=== PATIENT | male | born 1950 | race Caucasian/White ===

== ENCOUNTER 2018-09-20 07:42 | Inpatient (IN) | payer BC, OTHER ==
[2018-09-20] MEDS ORDERED: NA CHLORIDE 0.9% 1,000 ML ONE ×2 (08:29→10:38)
[2018-09-20 08:41] LABS: Absolute Lymphocytes (CBC) 0.9 K/uL (0.7-4.9); Basophils % 0.3 % (0-1.3); Eosinophils % 0.4 % (0-4.4); Hematocrit 44.7 % (39.6-49.0); Lymphocytes % 7.9 % (15.3-44.8); MPV 7.7 fL (7.6-11.3); Monocytes % 10.6 % (3.3-12.3); RBC Red Blood Cell Count 4.66 M/uL (4.33-5.43)
[2018-09-20 09:06] LABS: Albumin 3.2 g/dL (3.4-5.0); Bilirubin Direct 0.7 mg/dL (0-0.2); Bilirubin Total 1.5 mg/dL (0.2-1.0); Potassium 3.9 mmol/L (3.5-5.1)
--- NOTE | 2018-09-20 09:46 | RAD REPORT ---
EXAM DESCRIPTION: CT - Abdomen Pelvis W Contrast - 09/20/2018 9:25 am CLINICAL HISTORY: Abdominal pain with nausea. COMPARISON: none. TECHNIQUE: Computed axial tomography of the abdomen pelvis was obtained. 100 cc Isovue-300 was admin istered intravenously. Oral contrast was not requested which limits evaluation of bowel. All CT scans are performed using dose optimization technique as appropriate and may include automated exposure control or mA/KV adjustment according to patient size. FINDINGS: Mild fatty liver The Spleen, pancreas, and adrenals appear unremarkable. Bilateral renal calculi without hydronephrosi s. The prostate gland is mildly to moderately enlarged Diverticula stem from the colon without evidence of diverticulitis. Normal appendix. An umbilical hernia contains small bowel. The neck measures 3 centimeters. Mildly to moderately dilat ed small bowel is present to the level of the hernia. Ascites is present within the herniated sac. . Trace amount of ascites is present within the pelvis. Gallstones without gallbladder wall thickening IMPRESSION: Umbilical hernia contains obstructed small bowel
[2018-09-20] MEDS ORDERED: CIPROFLOXACIN 400mg IV 400 MG/200 ML BAG IV ONE (10:38)
[2018-09-20] MEDS ORDERED: METRONIDAZOLE 500mg IVPB 500 MG/100 ML BAG IV ONE (10:38)
[2018-09-20 11:02] LABS: Urine Blood NEGATIVE (NEG); Urine Glucose NEGATIVE (NEG); Urine Protein 2+ (NEG); Urine pH 6.5 (5.0-7.0)
--- NOTE | 2018-09-20 11:20 | ER ---
Nurse's Notes [facility] Name: Ariel Aburto Age: 67 yrs Sex: Male : 1950 Arrival Date: 09/20/2018 Time: 07:43 Bed 13 Private MD: Diagnosis: Umbilical hernia with obstruction, without gangrene Presentation: 09/20 07:44 Presenting complaint: Patient states: Has abdominal pain for awhile now but it is rb1 currently getting worse, pain 7/10. Transition of care: patient was not received from another setting of care. Onset of symptoms is unknown. Risk Assessment: Do you want to hurt yourself or someone else? Patient reports no desire to harm self or others. Initial Sepsis Screen: Does the patient meet any 2 criteria? No. Patient's initial sepsis screen is negative. Does the patient have a suspected source of infection? No. Patient's initial sepsis screen is negative. Care prior to arrival: None. 07:44 Method Of Arrival: Ambulatory [facility] 07:44 Acuity: HOANG 3 rb1 Triage Assessment: 07:44 General: Appears in no apparent distress. comfortable, Behavior is calm, cooperative, rb1 Reports fever for did not measure his temperature at home. Pain: Complains of pain in abdomen Pain currently is 7 out of 10 on a pain scale. Neuro: Level of Consciousness is awake, alert, obeys commands, Oriented to person, place, time, situation. Cardiovascular: Capillary refill < 3 seconds is brisk in bilateral fingers. Respiratory: Airway is patent Respiratory effort is even, unlabored, Respiratory pattern is regular, symmetrical. GI: Reports diarrhea, earlier in the week. : No signs and/or symptoms were reported regarding the genitourinary system. Derm: Skin is pink, warm \T\ dry. Musculoskeletal: Range of motion: intact in all extremities. Historical: - Allergies: 07:44 No Known Allergies; rb1 - Home Meds: 07:44 None [Active]; rb1 - PMHx: 07:44 None; rb1 - PSHx: 07:44 None; rb1 - Immunization history:: Adult Immunizations up to date. - Social history:: Smoking status: Patient uses tobacco products, smokes one pack cigarettes per day. - Ebola Screening: : Patient negative for fever greater than or equal to 101.5 degrees Fahrenheit, and additional compatible Ebola Virus Disease symptoms. Screenin:44 Abuse screen: Denies threats or abuse. Nutritional screening: No deficits noted. rb1 Tuberculosis screening: No symptoms or risk factors identified. Fall Risk None identified. Assessment: 07:44 General: See triage assessment. rb1 07:44 GI: Abdomen is tender to palpation in umbilical area. rb1 08:44 Reassessment: Patient appears in no apparent distress at this time. No changes from rb1 previously documented assessment. 09:44 Reassessment: Patient appears in no apparent distress at this time. Patient and/or rb1 family updated on plan of care and expected duration. Pain level reassessed. Patient is alert, oriented x 3, equal unlabored respirations, skin warm/dry/pink. 10:40 Reassessment: Patient appears in no apparent distress at this time. No changes from rb1 previously documented assessment. Pt. requested pain medication, provider notified. Provider denied pain medications at this time due to waiting for Dr. Bejarano to see the pt. 11:06 Reassessment: Dr. Bejarano is at the pt. bedside. rb1 11:40 Reassessment: Patient appears in no apparent distress at this time. Patient and/or rb1 family updated on plan of care and expected duration. Pain level reassessed. Patient is alert, oriented x 3, equal unlabored respirations, skin warm/dry/pink. 12:38 Reassessment: No changes from previously documented assessment. Patient and/or family rb1 updated on plan of care and expected duration. Pain level reassessed. Patient is alert, oriented x 3, equal unlabored respirations, skin warm/dry/pink. Pain 3/10. 12:45 Reassessment: Tried to call report but OCTAVIO Oakes was at lunch and will call me back. rb1 13:05 Reassessment: Called report to OCTAVIO Oakes. Information from the [facility] was given. All rb1 questions asked and answered. Vital Signs: 07:44 BP 113 / 94; Pulse 111; Resp 19; Temp 97.7(O); Pulse Ox 100% on R/A; Weight 92.99 kg rb1 (R); Height 5 ft. 11 in. (180.34 cm) (R); Pain 7/10; 08:44 BP 131 / 87; Pulse 93; Resp 17; Temp 97.9; Pulse Ox 98% on R/A; Pain 6/10; rb1 09:44 BP 122 / 83; Pulse 88; Resp 19; Temp 98.1(O); Pulse Ox 98% ; Pain 6/10; rb1 10:40 BP 126 / 83; Pulse 77; Resp 18; Temp 98.5(O); Pulse Ox 99% on R/A; Pain 6/10; rb1 11:40 BP 121 / 81; Pulse 77; Resp 17; Pulse Ox 97% on R/A; Pain 5/10; rb1 12:40 BP 126 / 75; Pulse 74; Resp 17; Temp 98.2(O); Pulse Ox 97% on R/A; Pain 3/10; rb1 07:44 Body Mass Index 28.59 (92.99 kg, 180.34 cm) rb1 ED Course: 07:43 Patient arrived in ED. as 07:44 Henny Kraft, RN is Primary Nurse. rb1 07:44 Arm band placed on right wrist. rb1 07:44 Patient has correct armband on for positive identification. Placed in gown. Bed in low rb1 position. Call light in reach. Side rails up X 1. Pulse ox on. NIBP on. 07:45 Toby Munoz PA is PHCP. cp 07:45 Toby Najera MD is Attending Physician. cp 07:55 Triage completed. rb1 08:21 Initial lab(s) drawn, by nj, sent to lab. Inserted saline lock: 18 gauge in right dh3 antecubital area, using aseptic technique. Blood collected. 08:40 Urine collected: clean catch specimen, clear. dh3 11:08 Abdomen In Process Unspecified. EDMS 11:18 Juan Diego Bejarano MD is Hospitalizing Provider. cp 12:03 EKG done, by treatment technician. reviewed by Toby BEJARANO. dt2 13:31 No provider procedures requiring assistance completed. Patient admitted, IV remains in rb1 place. Administered Medications: 08:31 Drug: NS 0.9% 1000 ml Route: IV; Rate: 500 ml/hr; Site: right antecubital; rb1 11:20 Follow up: IV Status: Completed infusion rb1 10:40 Drug: metroNIDAZOLE 500 mg Volume: 100 ml; Route: IVPB; Infused Over: 30 mins; Site: rb1 right antecubital; 11:15 Follow up: Response: No adverse reaction; IV Status: Completed infusion rb1 11:22 Drug: NS 0.9% 1000 ml Route: IV; Rate: 100 ml/hr; Site: right antecubital; rb1 13:30 Follow up: IV Status: Infusion continued upon admission rb1 11:23 Drug: Ciprofloxacin 400 mg Volume: 200 ml; Route: IVPB; Infused Over: 60 mins; Site: rb1 right antecubital; 12:41 Follow up: Response: No adverse reaction; IV Status: Completed infusion rb1 Output: 10:35 Urine: 1ml (Voided); Total: 1ml. rb1 Outcome: 11:19 Decision to Hospitalize by Provider. cp 13:31 Patient left the ED. rb1 13:31 Admitted to Tele accompanied by tech, via wheelchair, room 411, with chart, Report rb1 called to OCTAVIO Oakes 13:31 Condition: stable 13:31 Instructed on the need for admit. Signatures: Dispatcher [employer] Kym Cool Corey, Henny Spencer cp RN RN rb1 Netta Porter 3 Kerri Valencia dt2
--- NOTE | 2018-09-20 11:20 | EDPHYS ---
Physician Documentation [facility] Name: Ariel Aburto Age: 67 yrs Sex: Male : 1950 Arrival Date: 09/20/2018 Time: 07:43 Bed 13 Private MD: ED Physician Toby Najera HPI: 09/20 08:05 This 67 yrs old Male presents to ER via Ambulatory with complaints of cp Abdominal Pain. 08:05 The patient presents with abdominal pain that is diffuse. cp 08:05 Onset: The symptoms/episode began/occurred 1 year(s) ago, and became worse 2 week(s) cp ago. The symptoms do not radiate. Associated signs and symptoms: Pertinent negatives: anorexia, blood in stools, chest pain, constipation, diarrhea, fever, testicular pain, vomiting. The symptoms are described as waxing/waning. Severity of pain: in the emergency department the pain is a 7 / 10. Historical: - Allergies: 07:44 No Known Allergies; rb1 - Home Meds: 07:44 None [Active]; rb1 - PMHx: 07:44 None; rb1 - PSHx: 07:44 None; rb1 - Immunization history:: Adult Immunizations up to date. - Social history:: Smoking status: Patient uses tobacco products, smokes one pack cigarettes per day. - Ebola Screening: : Patient negative for fever greater than or equal to 101.5 degrees Fahrenheit, and additional compatible Ebola Virus Disease symptoms. ROS: 08:10 Constitutional: Negative for body aches, chills, fever, poor PO intake. cp 08:10 Eyes: Negative for injury, pain, redness, and discharge. cp 08:10 ENT: Negative for drainage from ear(s), ear pain, sore throat, difficulty swallowing, difficulty handling secretions. 08:10 Cardiovascular: Negative for chest pain, palpitations. 08:10 Respiratory: Negative for cough, shortness of breath, wheezing. 08:10 Abdomen/GI: Positive for abdominal pain, Negative for vomiting, diarrhea, constipation, anorexia, black/tarry stool, rectal bleeding. 08:10 Back: Negative for pain at rest, pain with movement, radiated pain. 08:10 : Negative for urinary symptoms, testicular pain 08:10 Skin: Negative for rash. 08:10 Neuro: Negative for altered mental status, headache, weakness. 08:10 All other systems are negative. Exam: 08:15 Constitutional: The patient appears in no acute distress, alert, awake, cp non-diaphoretic, non-toxic, well developed, well nourished. 08:15 Head/Face: Normocephalic, atraumatic. cp 08:15 Eyes: Periorbital structures: appear normal, Conjunctiva: normal, no exudate, no injection, Sclera: no appreciated abnormality, Lids and lashes: appear normal, bilaterally. 08:15 ENT: External ear(s): are unremarkable, Nose: is normal, Mouth: Lips: moist, Oral mucosa: pink and intact, moist, Posterior pharynx: is normal, airway is patent, no erythema, no exudate. 08:15 Chest/axilla: Inspection: normal, Palpation: is normal, no crepitus, no tenderness. 08:15 Cardiovascular: Rate: tachycardic, Rhythm: regular, Heart sounds: murmur, not appreciated, Edema: is not appreciated, JVD: is not appreciated. 08:15 Respiratory: the patient does not display signs of respiratory distress, Respirations: normal, no use of accessory muscles, no retractions, no splinting, no tachypnea, labored breathing, is not present, Breath sounds: are clear throughout, no decreased breath sounds, no stridor, no wheezing. 08:15 Abdomen/GI: Inspection: distension, that is mild, Bowel sounds: active, all quadrants, Palpation: soft, in all quadrants, mild abdominal tenderness, in all quadrants, rebound tenderness, is not appreciated, voluntary guarding, is not appreciated, involuntary guarding, is not appreciated, Hernia: noted in the umbilical area, incarceration, is not appreciated, tenderness, that is mild, reducible. 08:15 Back: pain, is absent, ROM is normal. 08:15 Skin: no rash present. 08:15 Neuro: Orientation: to person, place \T\ time. Mentation: is normal, Motor: moves all fours, strength is normal. 11:35 ECG was reviewed by the Attending Physician. cp Vital Signs: 07:44 BP 113 / 94; Pulse 111; Resp 19; Temp 97.7(O); Pulse Ox 100% on R/A; Weight 92.99 kg rb1 (R); Height 5 ft. 11 in. (180.34 cm) (R); Pain 7/10; 08:44 BP 131 / 87; Pulse 93; Resp 17; Temp 97.9; Pulse Ox 98% on R/A; Pain 6/10; rb1 09:44 BP 122 / 83; Pulse 88; Resp 19; Temp 98.1(O); Pulse Ox 98% ; Pain 6/10; rb1 10:40 BP 126 / 83; Pulse 77; Resp 18; Temp 98.5(O); Pulse Ox 99% on R/A; Pain 6/10; rb1 11:40 BP 121 / 81; Pulse 77; Resp 17; Pulse Ox 97% on R/A; Pain 5/10; rb1 12:40 BP 126 / 75; Pulse 74; Resp 17; Temp 98.2(O); Pulse Ox 97% on R/A; Pain 3/10; rb1 07:44 Body Mass Index 28.59 (92.99 kg, 180.34 cm) rb1 MDM: 07:46 Patient medically screened. [email or web address] 08:40 Differential diagnosis: appendicitis, bowel obstruction, cholecystitis, Cholelithiasis, cp diverticulitis, gastritis, pancreatitis, Peptic Ulcer Disease, Perf. Duodenal Ulcer, Perf. Gastric Ulcer, Ureterolithiasis, urinary tract infection, incarcerated hernia. 10:00 Data reviewed: vital signs, nurses notes, lab test result(s), radiologic studies, CT cp scan, I have discussed the patient's presentation/case with the attending Emergency Department Physician;. 10:03 Physician consultation: Juan Diego Bejarano MD was called at 10:00, was contacted at 10:00, regarding patient's condition, and will see patient in ED. 09/20 08:03 Order name: Basic Metabolic Panel cp 09/20 08:03 Order name: CBC with Diff cp 09/20 08:03 Order name: Creatinine for Radiology cp 09/20 08:03 Order name: Hepatic Function cp 09/20 08:03 Order name: Lipase cp 09/20 08:41 Order name: Urine Dipstick--Ancillary (enter results) ms 09/20 10:38 Order name: Basic Metabolic Panel EDMS 09/20 10:38 Order name: CBC with Automated Diff EDMS 09/20 10:39 Order name: Liver (Hepatic) Function EDMS 09/20 10:39 Order name: Lipase EDMS 09/20 10:40 Order name: Creatinine (Radiology Only) EDMS 09/20 11:14 Order name: Urine Dipstick-Ancillary EDMS 09/20 11:17 Order name: Troponin I cp 09/20 11:17 Order name: PT-INR cp 09/20 08:03 Order name: IV Saline Lock; Complete Time: 08:26 cp 09/20 08:03 Order name: Labs collected and sent; Complete Time: 08:26 cp 09/20 08:03 Order name: CT Abd/Pelvis - IV Contrast Only cp 09/20 08:03 Order name: Urine Dipstick-Ancillary (obtain specimen); Complete Time: 08:40 cp 09/20 10:57 Order name: Abdomen EDMS 09/20 11:17 Order name: EKG; Complete Time: 11:23 cp 09/20 11:17 Order name: Ptt, Activated cp 09/20 11:48 Order name: NPO EDIL 09/20 11:53 Order name: Basic Metabolic Panel EDIL 09/20 11:53 Order name: Basic Metabolic Panel EDIL 09/20 11:53 Order name: CBC with Automated Diff EDMS 09/20 11:53 Order name: CBC with Automated Diff EDMS 09/20 10:03 Order name: NPO; Complete Time: 10:19 cp 09/20 11:17 Order name: EKG - Nurse/Tech; Complete Time: 12:56 cp EC:35 Rate is 77 beats/min. Rhythm is regular. DC interval is normal. QRS interval is normal. cp QT interval is normal. Interpreted by me. Reviewed by me. Administered Medications: 08:31 Drug: NS 0.9% 1000 ml Route: IV; Rate: 500 ml/hr; Site: right antecubital; rb1 11:20 Follow up: IV Status: Completed infusion rb1 10:40 Drug: metroNIDAZOLE 500 mg Volume: 100 ml; Route: IVPB; Infused Over: 30 mins; Site: rb1 right antecubital; 11:15 Follow up: Response: No adverse reaction; IV Status: Completed infusion rb1 11:22 Drug: NS 0.9% 1000 ml Route: IV; Rate: 100 ml/hr; Site: right antecubital; rb1 13:30 Follow up: IV Status: Infusion continued upon admission rb1 11:23 Drug: Ciprofloxacin 400 mg Volume: 200 ml; Route: IVPB; Infused Over: 60 mins; Site: rb1 right antecubital; 12:41 Follow up: Response: No adverse reaction; IV Status: Completed infusion rb1 Disposition: 09/20/18 11:19 Hospitalization ordered by Juan Diego Bejarano for Inpatient Admission. Preliminary diagnosis is Umbilical hernia with obstruction, without gangrene. - Bed requested for Telemetry/MedSurg (Inpatient). - Status is Inpatient Admission. rb1 - Condition is Stable. - Problem is new. - Symptoms have improved. UTI on Admission? No Addendum: 09/21/2018 16:34 Co-signature as Attending Physician, Toby Najera MD I agree with the assessment and c dowd plan of care. Signatures: Dispatcher [employer] EDMS Toby Najera MD MD cha Solis, Maria ms Page, Corey, PA PA cp Barber, Rebecca, RN RN rb1 Corrections: (The following items were deleted from the chart) 09/20 11:19 11:19 Hospitalization Ordered by Juan Diego Bejarano MD for Inpatient Admission. Preliminary cp diagnosis is Umbilical hernia without obstruction or gangrene. Bed requested for Telemetry/MedSurg (Inpatient). Status is Inpatient Admission. Condition is Stable. Problem is new. Symptoms have improved. UTI on Admission? No. cp 12:37 11:19 09/20/2018 11:19 Hospitalization Ordered by Juan Diego Bejarano MD for Inpatient ms Admission. Preliminary diagnosis is Umbilical hernia with obstruction, without gangrene. Bed requested for Telemetry/MedSurg (Inpatient). Status is Inpatient Admission. Condition is Stable. Problem is new. Symptoms have improved. UTI on Admission? No. cp 13:31 12:37 09/20/2018 11:19 Hospitalization Ordered by Juan Diego Bjearano MD for Inpatient rb1 Admission. Preliminary diagnosis is Umbilical hernia with obstruction, without gangrene. Bed requested for Telemetry/MedSurg (Inpatient). Status is Inpatient Admission. Condition is Stable. Problem is new. Symptoms have improved. UTI on Admission? No. ms
[2018-09-20] MEDS ORDERED: ONDANSETRON 4 MG/2 ML VIAL IV PRN ×2 (11:25→11:29)
[2018-09-20] MEDS ORDERED: MORPHINE 2 MG/ML SYR IV PRN (11:29)
[2018-09-20] MEDS ORDERED: INSULIN -REGULAR HUMAN 50 UNIT/0.5 ML ML SQ SCH (11:30)
[2018-09-20] MEDS ORDERED: METRONIDAZOLE 500mg IVPB 500 MG/100 ML BAG IV SCH (12:00)
[2018-09-20] MEDS ORDERED: NA CHLORIDE 0.9% 1,000 ML IV SCH (12:00)
[2018-09-20 12:12] LABS: Protime INR 1.19
--- NOTE | 2018-09-20 12:29 | EKG ---
Test Date: 2018-09-20 Test Time: 11:31:04 Professor Of Music: TAMIKO MEASUREMENT RESULTS: Intervals: Rate: 77 IN: 160 QRSD: 86 QT: 390 QTc: 441 [place]: P: 74 IN: 160 QRS: 48 T: 55 INTERPRETIVE STATEMENTS: Normal sinus rhythm Normal ECG Compared to ECG 10/23/2003 18:28:00 Sinus tachycardia no longer present T-wave abnormality no longer present Electronically Signed On 09-20-18 12:28:20 CDT by Raheem Mallory
[2018-09-20] MEDS ORDERED: KCL 20 MEQ/100 mL IVPB 20 MEQ/100 ML BAG IV SCH (14:00)
[2018-09-20] MEDS: Ringers Lactate 1,000 ML IV SCH ×2 (14:14→22:00)
[2018-09-20] MEDS ORDERED: D50W 25 GM/50 ML SYRINGE IV PRN (17:11)
[2018-09-20] MEDS ORDERED: GLUCAGON 1 MG/VIAL IM PRN (17:11)
[2018-09-20] MEDS: METRONIDAZOLE 500mg IVPB 500 MG/100 ML BAG IV SCH ×2 (17:17→23:48)
[2018-09-20] MEDS: NICOTINE 21 MG/PAT TD SCH (17:18)
[2018-09-20] MEDS: INSULIN -REGULAR HUMAN 50 UNIT/0.5 ML ML SQ SCH (17:29)
[2018-09-20] MEDS: MORPHINE 2 MG/ML SYR IV PRN (17:33)
[2018-09-20] MEDS: CIPROFLOXACIN 400mg IV 400 MG/200 ML BAG IV SCH (20:52)
[2018-09-20] MEDS ORDERED: CIPROFLOXACIN 400mg IV 400 MG/200 ML BAG IV SCH (21:00)
--- NOTE | 2018-09-20 23:08 | HP ---
Date of Admission: 09/20/2018 Brief History Of Present Illness: The patient is a 67-year-old male with no past medical h istory; however, he has not seen a doctor and he states approximately 25 years ago, he was presented to the hospital with a 1-year history of abdominal pain and umbilical pain, swelling, and tenderness. He states that he has had an umbilical hernia for approximately a year. However, it coursed last m onth. It has progressively worsened over the last day or so. It popped into his umbilicus and got s ignificantly larger, more tender and he started to have some nausea associated. He has had similar e pisodes before in the past, but never of this intensity. Dr. Najera was able to successfully reduc e his hernia in the emergency room after CT was performed and the patient had significant pain and sy mptomatic improvement after reduction, but continued to have some mild tenderness to his abdomen foll owing that. Past Medical History: Negative. Past Surgical History: Negative. Allergies: NO KNOWN DRUG ALLERGIES. Medications: He takes NyQuil at night for sleep aid. He has a 57-[id number]-year history of smoking and smokes a pack per day. Denies alcohol or recreational drug use. 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 Family History: Noncontributory. Review of Systems: A 10-point review of systems other than HPI, denies. Physical Examination: General: At the time of my examination, he is awake, alert, and oriented. Psychiatric: Appropriate, conversive. HEENT: Normocephalic. Sclerae anicteric. Mucous membranes are moist. Oropharynx clear. Neck: Supple. No JVD. Chest: Normal expansion and excursion. Cardiovascular: Regular rate and rhythm. Pulmonary: Clear to auscultation bilaterally. Abdomen: Soft with positive reducible umbilical hernia. I have palpated the hernia. There was cont ent, but easily reducible with minimal tenderness, but recurs somewhat quickly. The defect is approx imately a centimeter in size at the umbilical position. The remainder of his abdominal exam is compl etely benign. Extremities: No clubbing, cyanosis, or edema. Skin: Warm, dry. Laboratory Data: Reveals white blood count 11.5, hemoglobin is 15.2, hematocrit 44.7, platelet count is 258. His neutrophils 80%. His sodium 139, potassium 3.9, chloride 104, carbon dioxide 27, BUN 2 4, creatinine 0.9, glucose is 109. His total bilirubin 1.5, direct component 0.7, AST 21, ALT 29, al kaline phosphatase 103, lipase 97. He had a CT scan performed of the abdomen and pelvis, which was o fficially read as umbilical hernia contains small bowel and neck measures 3 cm. Mild to moderately d ilated small bowel is present at the level of the hernia. Ascites is present without the hernia sac. Trace amount of ascites is present in the pelvis. Assessment And Plan: This is a 67-year-old male who presents with a reducible umbilical hernia. 1.IV fluid hydration. 2.Antibiotic coverage. 3.I have explained the risks, benefits, and alternatives of open umbilical hernia repair. We will p roceed with surgery tomorrow morning as this is a reducible hernia and his pain is improving, but it recurs somewhat quickly. In addition, he had some coffee not too long ago and Anesthesia prefers 6-8 hours of n.p.o. prior to any surgical intervention that is not emergent and therefore I will plan fo r surgery tomorrow morning. The patient will be admitted under my service. I have explained the ris ks, benefits, and alternatives of the above-stated plan. The patient agrees to proceed as indicated. DERICK/QUINN Voice ID: [id number]
[2018-09-21] MEDS: INSULIN -REGULAR HUMAN 50 UNIT/0.5 ML ML SQ SCH ×4 (06:00→18:00)
[2018-09-21] MEDS: METRONIDAZOLE 500mg IVPB 500 MG/100 ML BAG IV SCH (06:26)
[2018-09-21 06:28] LABS: Absolute Lymphocytes (CBC) 1.1 K/uL (0.7-4.9); Basophils % 0.3 % (0-1.3); Eosinophils % 1.6 % (0-4.4); Lymphocytes % 22.3 % (15.3-44.8); Monocytes % 7.8 % (3.3-12.3); RBC Red Blood Cell Count 4.35 M/uL (4.33-5.43)
[2018-09-21 06:45] LABS: Potassium 3.8 mmol/L (3.5-5.1)
[2018-09-21] MEDS: Ringers Lactate 1,000 ML IV SCH ×2 (08:00→18:00)
[2018-09-21 08:14] LABS: Blood Morphology Comment NOT SEEN (NOT SEEN); Platelet Estimate ADEQ; Urine White Blood Cell Casts OK
[2018-09-21] MEDS: CIPROFLOXACIN 400mg IV 400 MG/200 ML BAG IV SCH (08:37)
[2018-09-21] MEDS ORDERED: PROPOFOL 200 MG/20 ML VIAL IV ONE (09:23)
[2018-09-21] MEDS ORDERED: GLYCOPYRROLATE 0.2 MG/ML SYR ONE (09:24)
[2018-09-21] MEDS ORDERED: MIDAZOLAM HCL 2 MG/2 ML INJ ONE (09:24)
[2018-09-21] MEDS ORDERED: LIDOCAINE 2% MPF 5 ML VIAL ONE (09:25)
[2018-09-21] MEDS ORDERED: FENTANYL CITR 250 MCG/5 ML ONE (09:25)
[2018-09-21] MEDS ORDERED: NEOSTIGMINE 1 MG/ML -10 ML VIAL ONE (09:26)
[2018-09-21] MEDS ORDERED: ONDANSETRON 4 MG/2 ML VIAL ONE (09:28)
[2018-09-21] MEDS ORDERED: ROCURONIUM 50 MG/5 ML VIAL IV ONE (09:28)
[2018-09-21] MEDS ORDERED: BUPIVACA 0.25%/EPI 0.0005% MDV 50 ML VIAL ONE (09:29)
--- NOTE | 2018-09-21 10:38 | P.OP ---
Preoperative diagnosis: Umbilical Hernia Postoperative diagnosis: Umbilical Hernia Primary procedure: Open Umbilical Hernia Repair with Mesh Anesthesia: GETA + Local Estimated blood loss: <5cc Specimen: Hernia Sack Findings: ~3cm hernia with edema to abdominal wall, small bowel contained in hernia Complications: None Implants: 6.4cm Bard Ventralex Round Mesh Transferred to: Recovery Room Condition: Good
[2018-09-21] MEDS ORDERED: NA CHLORIDE 0.9% 1,000 ML ONE (10:47)
[2018-09-21] MEDS: MEPERIDINE HCL 50 MG/ML AMP ONE ×2 (10:49→10:51)
[2018-09-21] MEDS: HYDROMORPHONE HCL 1 MG/ML INJ ONE ×4 (11:10→11:28)
[2018-09-21] MEDS ORDERED: MEPERIDINE HCL 50 MG/ML AMP ONE (11:12)
--- NOTE | 2018-09-21 12:54 | OP ---
Date of Procedure: 09/21/2018 Surgeon: Esa Bejarano MD, Preoperative Diagnosis: Umbilical hernia. Postoperative Diagnosis: Umbilical hernia. Procedure Performed: Open umbilical hernia repair with mesh. Anesthesia: General endotracheal plus local with 0.25% Marcaine. Estimated Blood Loss: Less than 5 cc. Specimens: Hernia sac. Findings: Approximately 3 cm hernia with edema to the abdominal wall, small bowel contained within t he hernia. However, small bowel was completely pink and viable and easy to reduce. Complications: None. Implants: 6.4 cm round Bard Ventralex mesh in the preperitoneal space. Disposition: Transferred to recovery room in good condition. Procedure In Detail: After informed consent was obtained, the patient was brought to the operating r oom, prepped and draped in the usual sterile fashion. After adequate anesthesia was achieved, a curv ilinear infraumbilical incision was made down the subcutaneous tissues with a 15 blade scalpel down i nto the subcutaneous tissues. Dissection continued down to encircle the hernia sac using both blunt and electrocautery dissection. The hernia sac was from the surrounding subcutaneous and rivas rrounding tissues down to the entry point into the abdomen. After the hernia contents were returned to the normal anatomic position, the hernia sac was opened and inspected. The hernia sac was then op ened in its entirety and ligated circumferentially and sent off for pathologic examination. The bernardino ia defect was found to be little less than 3 cm in size with the hernia neck. Intestines were inspec esa at this time and found to be small bowel contents evident as there position. They were pink and viable and peristalsing without any evidence of obstruction on visual examination. A 6.4 cm Bard Yovany tralex round mesh was then brought into the field, hydrated appropriately and parachute type sutures were used, using 0 PDS in an interrupted fashion to secure this mesh circumferentially to the preperi toneal space. After this was performed, it was secured to the abdominal wall, ensuring there were no ripples in the mesh and was laid flat in the preperitoneal space of the abdominal wall. At this poi nt, then a 0 Vicryl suture was used to run a canal type stitch to close the fascia over the top, taki ng a bite of the Sail to secure to the anterior abdominal wall as well. After this was performed the Sail was trimmed and the umbilicus was then secured to the remnant of the Sail and secured using the above stated 3-0 Vicryl suture. The subcutaneous layer was then inspected and found to be pink and viable. The area was copiously irrigated multiple times until completely clear. No bleeding or hemo static measures were required. At this point, the deep dermal tissues were then secured to each othe r to close in an interrupted fashion using a 3-0 Vicryl and the skin was then closed with 4-0 Monocry l in a running fashion and Dermabond placed over the top. The patient tolerated the procedure well w ithout evidence of complications, transferred to the PACU in good condition. All counts were correct at the end of the case. DERICK/QUINN Voice ID: [id number] Report ID: [id number]
[2018-09-21] MEDS: MORPHINE 2 MG/ML SYR IV PRN (14:18)
[2018-09-21] MEDS: NICOTINE 21 MG/PAT TD SCH (17:10)
== END 2018-09-21 19:35 | disposition home or self-care (01) | DRG 355 ==
LOC: ER 07:42 → ERHOLD 11:27 → 4TH 13:15
PROVIDERS: ADMIT Surgery; ATTEND Surgery
PROC: 0WUF0JZ Supplement Abdominal Wall with Synthetic Substitute, Open Approach (ICD-10-PCS; principal; 2018-09-21 09:30)
DX: K42.9 Umbilical hernia without obstruction or gangrene (principal); F17.210 Nicotine dependence, cigarettes, uncomplicated
CPT/HCPCS: 36415; 74177; 80048; 80076; 81003; 82962; 83690; 84484; 85025; 85610; 85730; 88302; 93005; 96361; 96365; 96367; 99285; J0744; J1170; J2175; J2250; J2270; J2405; J2704; J2710; J3010; J7030; Q9967

== ENCOUNTER 2019-01-16 09:41 | Emergency (ER) | payer BC, OTHER ==
[2019-01-16] MEDS ORDERED: DIAZEPAM 10 MG/2 ML INJ SYRINGE ONE (11:33)
[2019-01-16] MEDS ORDERED: ACETAMINOPHEN 500 MG TAB ONE (11:33)
[2019-01-16] MEDS ORDERED: FENTANYL CITR 100 MCG/2 ML ONE ×2 (11:33→13:13)
[2019-01-16 11:35] LABS: Absolute Lymphocytes (CBC) 1.1 K/uL (0.7-4.9); Basophils % 0.6 % (0-1.3); Lymphocytes % 21.5 % (15.3-44.8); MPV 7.7 fL (7.6-11.3); RBC Red Blood Cell Count 4.49 M/uL (4.33-5.43)
[2019-01-16 11:39] LABS: Protime INR 1.04
[2019-01-16 11:53] LABS: Albumin 4.2 g/dL (3.4-5.0); Bilirubin Direct 0.2 mg/dL (0-0.2); Bilirubin Total 0.6 mg/dL (0.2-1.0); Potassium 4.3 mmol/L (3.5-5.1)
--- NOTE | 2019-01-16 12:13 | RAD REPORT ---
EXAM DESCRIPTION: US - Extremity Venous Uni Ltd - 01/16/2019 12:02 pm CLINICAL HISTORY: Right leg pain and swelling COMPARISON: None. TECHNIQUE: Real-time sonographic evaluation of the right lower extremity deep venous systems was per formed. FINDINGS: Normal compressibility, flow augmentation, phasic flow and spontaneous flow are identified in the right lower extremity common femoral, superficial femoral, popliteal and posterior tibial vei ns. No intraluminal filling defects seen. IMPRESSION: No DVT in the right lower extremity.
--- NOTE | 2019-01-16 13:06 | RAD REPORT ---
EXAM DESCRIPTION: CT - Abdomen Pelvis W Contrast - 01/16/2019 12:47 pm CLINICAL HISTORY: R low back pain. left swelling. eval for neoplasia COMPARISON: CT imaging September 20, 2018 TECHNIQUE: Biphasic, helical CT imaging of the abdomen and pelvis was performed following 100 ml non -ionic IV contrast. Oral contrast was given. All CT scans are performed using dose optimization technique as appropriate and may include automated exposure control or mA/KV adjustment according to patient size. FINDINGS: No suspicious findings in the lung bases. Liver capsule is slightly nodular. No focal liver parenchymal process seen. The liver is normal size. No spleen or pancreatic finding. Multiple gallstones are present layering in the dependent portion t he gallbladder near the neck. No wall thickening or pericholecystic fluid. No biliary tree dilatation . Symmetric renal function is seen with no hydronephrosis or suspicious renal mass. A 15 x 8 mm calculu s is present in the lower pole of the left kidney. No obstruction. No bladder abnormalities. No adren al abnormalities. No gastric dilatation or gastric wall thickening. No dilated large or small bowel loops. No appendici tis findings. Mild to moderate diverticulosis is present in the redundant sigmoid colon. No active co kyle process seen. No free air, free fluid or inflammatory stranding. The periumbilical hernia seen in September has been repaired. No recurrence of the hernia. No bulky lymphadenopathy. Prominent prostate gland noted and unchanged. Disc and bony degenerative changes are present. No pathologic bone process. Slight wedging of T10 and T11 stable from the September imaging. IMPRESSION: No mass, lymphadenopathy or other finding suspicious for abdominal or pelvic malignant p rocess. Slight nodularity of the liver capsule is present. This is subtle but could potentially indicate hepa tic parenchymal disease. No focal liver lesion. Incidental cholelithiasis. No active gallbladder or biliary tree process. Nonobstructing 15 x 8 mm calculus lower pole left kidney similar to comparison.
--- NOTE | 2019-01-16 13:19 | RAD REPORT ---
EXAM DESCRIPTION: MRI - Lumbar Spine Wo Con- 01/16/2019 1:09 pm CLINICAL HISTORY: R low back and leg pain Radiculopathy COMPARISON: No comparisons FINDINGS: Vertebral body heights are within normal limits. No aggressive marrow pattern is observed. No fracture is suspected. The conus medullaris terminates at a normal level. No thickening of the cauda equina or clumping of n erve roots seen. L1-2 level: Mild posterior disc bulge without canal or foraminal stenosis. L2-3 level: Large central disc extrusion is seen measuring 7 mm in anterior-posterior dimension resul ting in moderate central canal stenosis. Inferior component of this extruded disc extends into the ri ght lateral recess measuring 11 mm in size and resulting in right lateral recess stenosis. This porti on of the disc extrusion may be sequestered. L3-4 level: Broad-based posterior disc bulge with mild facet and ligamentum flavum hypertrophy is see n. Small posterior annular fissure. Moderate facet hypertrophy. Mild narrowing the anterior inferior aspects of both exit foramina. L4-5 level: Mild posterior disc bulge moderate facet and ligamentum flavum hypertrophy, greater on th e right. Mild attenuation of the right lateral recess is seen. Mild narrowing the anterior inferior a spect of the right exit foramen. L5-S1 level: Mild posterior disc bulge with moderate facet and ligamentum flavum hypertrophy. Mild at tenuation of the left lateral recess is seen. Moderate narrowing of the left exit foramen. IMPRESSION: Very large disc extrusion as described is seen at L2-3 resulting in right lateral recess stenosis with effect on the traversing right L3 nerve root. Suggest correlation with right L3 radicu lopathy symptoms.
[2019-01-16] MEDS ORDERED: dexAMETHasone 10 MG/ML VIAL ONE (14:10)
--- NOTE | 2019-01-16 14:12 | EDPHYS ---
Physician Documentation [facility] Name: Ariel Aburto Age: 68 yrs Sex: Male : 1950 Arrival Date: 01/16/2019 Time: 09:43 Bed 20 Private MD: None, None ED Physician Danie Salinas HPI: 01/16 11:32 This 68 yrs old Male presents to ER via Ambulatory with complaints of Leg wa Swelling, Back Pain. 11:32 The patient presents with pain that is acute, with no known mechanism of injury. The wa symptoms are located in the low back. Onset: The symptoms/episode began/occurred 2 week(s) ago. The pain radiates to the right leg. Associated signs and symptoms: Pertinent positives: right ankle and calf swelling. also pain and numbness to R lateral thigh. Associated signs and symptoms: Pertinent negatives: abdominal pain, chest pain, dysuria, fever, urinary retention, vomiting, weakness. The problem was sustained from unknown cause. Modifying factors: The patient symptoms are alleviated by nothing, the patient symptoms are aggravated by supine position. Severity of symptoms: At their worst the symptoms were moderate, in the emergency department the symptoms are actually worse, moderately. The patient has not experienced similar symptoms in the past. The patient has not recently seen a physician. states awoke 2 weeks ago with R ankle pain. since then have noted pain in the lower back as well, worse when lays flat. admits to R ankle swelling. also R calf swelling. numbness and pain to R thigh. . Historical: - Allergies: 10:00 No Known Allergies; ss - Home Meds: 10:00 None [Active]; ss - PMHx: 10:00 None; ss - PSHx: 10:00 Hernia repair; ss - Immunization history:: Flu vaccine is not up to date. - Social history:: Smoking status: Patient/guardian denies using tobacco, the patient reports quitting approximately .5 years ago. - Ebola Screening: : Patient denies exposure to infectious person Patient denies travel to an Ebola-affected area in the 21 days before illness onset. - Family history:: not pertinent. - Hospitalizations: : No recent hospitalization is reported. ROS: 11:37 Constitutional: Negative for fever, chills, and weight loss, Eyes: Negative for injury, wa pain, redness, and discharge, ENT: Negative for injury, pain, and discharge, Neck: Negative for injury, pain, and swelling, Cardiovascular: Negative for chest pain, palpitations, and edema, Respiratory: Negative for shortness of breath, cough, wheezing, and pleuritic chest pain, Abdomen/GI: Negative for abdominal pain, nausea, vomiting, diarrhea, and constipation, : Negative for injury, bleeding, discharge, and swelling, Skin: Negative for injury, rash, and discoloration, Neuro: Negative for headache, weakness, numbness, tingling, and seizure, Psych: Negative for depression, anxiety, suicide ideation, homicidal ideation, and hallucinations. 11:37 Back: Positive for pain at rest, radiated pain, of the right low back, Negative for injury or acute deformity. 11:37 MS/extremity: Positive for swelling, tenderness, of the right calf, Negative for injury or acute deformity. Exam: 11:38 Constitutional: This is a well developed, well nourished patient who is awake, alert, wa and in no acute distress. Head/Face: Normocephalic, atraumatic. Eyes: Pupils equal round and reactive to light, extra-ocular motions intact. Lids and lashes normal. Conjunctiva and sclera are non-icteric and not injected. Cornea within normal limits. Periorbital areas with no swelling, redness, or edema. ENT: Nares patent. No nasal discharge, no septal abnormalities noted. Tympanic membranes are normal and external auditory canals are clear. Oropharynx with no redness, swelling, or masses, exudates, or evidence of obstruction, uvula midline. Mucous membranes moist. Neck: Trachea midline, no thyromegaly or masses palpated, and no cervical lymphadenopathy. Supple, full range of motion without nuchal rigidity, or vertebral point tenderness. No Meningismus. Chest/axilla: Normal chest wall appearance and motion. Nontender with no deformity. No lesions are appreciated. Cardiovascular: Regular rate and rhythm with a normal S1 and S2. No gallops, murmurs, or rubs. Normal PMI, no JVD. No pulse deficits. Respiratory: Lungs have equal breath sounds bilaterally, clear to auscultation and percussion. No rales, rhonchi or wheezes noted. No increased work of breathing, no retractions or nasal flaring. Abdomen/GI: Soft, non-tender, with normal bowel sounds. No distension or tympany. No guarding or rebound. No evidence of tenderness throughout. Neuro: Awake and alert, GCS 15, oriented to person, place, time, and situation. Cranial nerves II-XII grossly intact. Motor strength 5/5 in all extremities. Sensory grossly intact. Cerebellar exam normal. Normal gait. Psych: Awake, alert, with orientation to person, place and time. Behavior, mood, and affect are within normal limits. 11:38 Back: pain, that is moderate, of the lumbar area and right low back, ROM is normal, CVA tenderness, is absent, vertebral tenderness, is not appreciated, Straight leg raises: of both lower extremities does not illicit pain. 11:38 Musculoskeletal/extremity: Extremities: grossly normal except: noted in the right leg: noted bluish hue to R LE. normothermic. DP pulse noted bilaterally to palpation. noted R calf swelling. tight. mild discoloration. R thigh diffusely tender. no swelling or redness. Vital Signs: 10:00 BP 150 / 90; Pulse 73; Resp 16; Temp 98.2(O); Pulse Ox 96% on R/A; Weight 86.18 kg; ss Height 5 ft. 11 in. (180.34 cm); Pain 3/10; 11:11 BP 156 / 83; Pulse 66; Resp 16 S; Pulse Ox 98% on R/A; Pain 4/10; ca1 13:09 BP 155 / 86; Pulse 64; Resp 17 S; Pulse Ox 99% on R/A; ca1 14:00 BP 151 / 81; Pulse 65; Resp 17 S; Pulse Ox 98% on R/A; ca1 10:00 Body Mass Index 26.50 (86.18 kg, 180.34 cm) MDM: 10:51 Patient medically screened. wa 11:43 Differential diagnosis: Abdominal Aortic Aneurysm Metastatic Disease Neoplasm ruptured wa disc, DVT?. 11:44 Special discussion: will need r/o DVT. does not explain radiation pain however. wa consider lumbar nerve impingement. r/o AAA or neoplasia as cause of this consolation of symptoms. 12:06 Data reviewed: vital signs, nurses notes, lab test result(s), radiologic studies. Test wa interpretation: by ED physician or midlevel provider: labs noted wnl. . 13:48 Response to treatment: improved. pain reoccurred. a second dose of fentanyl wa administered. 14:01 Test interpretation: by ED physician or midlevel provider: CT abd/pelvis: gallstones. wa non-obstructing L kidney stones. slight wedge at T10 and T11. stable from previous. Doppler RLE: no DVT. MRI lumbar spine: very large disc extrusion at L2-L3 with right lateral recess stenosis with effect of traversing R L3 nerve root. . Special discussion: noted L2-L3 nerve root impingement due to large disc extrusion. pt still with significant discomfort. will give a dose of decadron. will d/c with f/u with neuro/spine. . 01/16 11:16 Order name: Basic Metabolic Panel; Complete Time: 12:05 ok 01/16 11:16 Order name: CBC with Diff; Complete Time: 12:05 ok 01/16 11:16 Order name: LFT's; Complete Time: 12:05 ok 01/16 11:16 Order name: PT-INR; Complete Time: 12:05 ok 01/16 11:18 Order name: Extremity Venous Uni Ltd US; Complete Time: 13:35 ok 01/16 11:20 Order name: MRI Lumbar Spine wo Con; Complete Time: 13:50 ok 01/16 11:16 Order name: Cardiac monitoring; Complete Time: 11:18 ok 01/16 12:09 Order name: CT Abd/Pelvis - IV Contrast Only; Complete Time: 13:14 ok 01/16 11:16 Order name: IV Saline Lock; Complete Time: 11:39 ok 01/16 11:16 Order name: Labs collected and sent; Complete Time: 11:39 ok 01/16 11:16 Order name: O2 Sat Monitoring; Complete Time: 11:18 ok Administered Medications: 11:30 Drug: Tylenol 1000 mg Route: PO; ca1 12:30 Follow up: Response: No adverse reaction; Pain is decreased ca1 11:31 Drug: fentaNYL (PF) 25 mcg {Note: RASS - 0.} Route: IVP; Site: right antecubital; ca1 12:30 Follow up: Response: No adverse reaction; Pain is decreased; RASS: Alert and Calm (0) ca1 11:35 Drug: Valium 2 mg {Note: RASS - 0.} Route: IVP; Site: right antecubital; ca1 12:40 Follow up: Response: No adverse reaction; Pain is decreased; RASS: Alert and Calm (0) ca1 13:17 Drug: fentaNYL (PF) 50 mcg {Note: RASS - 0.} Route: IVP; Site: right antecubital; ca1 14:20 Follow up: Response: No adverse reaction; Pain is decreased; RASS: Alert and Calm (0) ca1 14:15 Drug: Decadron - Dexamethasone 10 mg Route: IVP; Site: right antecubital; ca1 14:29 Follow up: Response: Medication administered at discharge. ca1 Disposition: 01/16/19 14:11 Discharged to Home. Impression: lower back pain with radiculopathy, L2-L3 disc extrusion with lateral recess stonosis affecting right L3 nerve root. - Condition is Stable. - Discharge Instructions: Lumbosacral Radiculopathy, Pinched Nerve, Herniated Disk, [id number], Radicular Pain. - Prescriptions for Valium 2 mg Oral Tablet - take 1 tablet by ORAL route At bedtime As needed; 20 tablet. Prednisone 20 mg Oral Tablet - take 2 tablet by ORAL route once daily for 5 days; 10 tablet. Ibuprofen 600 mg Oral Tablet - take 1 tablet by ORAL route every 6 hours As needed take with food; 30 tablet. - Medication Reconciliation Form, Thank You Letter, Antibiotic Education, Prescription Opioid Use form. - Follow up: Vernon Turner MD; When: 1 - 2 days; Reason: Recheck today's complaints. - Problem is new. - Symptoms have improved. - Notes: follow up with the neurosurgeon as discussed within 2 days. return to ER immediately for worsening concerns including difficulty walking, fever. Signatures: Dispatcher [employer] [facility] Jessica Bates RN RN Danie Salinas MD MD ok Julia Sheffield RN RN ca1 Corrections: (The following items were deleted from the chart) 12:19 11:22 Abdomen Pelvis Wo Con+[id number] ordered. [facility] 14:30 14:11 01/16/2019 14:11 Discharged to Home. Impression: lower back pain with ca1 radiculopathy; L2-L3 disc extrusion with lateral recess stonosis affecting right L3 nerve root. Condition is Stable. Forms are Medication Reconciliation Form, Thank You Letter, Antibiotic Education, Prescription Opioid Use. Follow up: Vernon Turner; When: 1 - 2 days; Reason: Recheck today's complaints. Problem is new. Symptoms have improved. wa
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
[2019-01-16 14:36] VITALS: TEMP 98.2
[2019-01-16 14:40] VITALS: BP 151/81; O2SAT 98
== END 2019-01-16 14:30 | disposition home or self-care (01) ==
LOC: ER 09:41
DX: M54.16 Radiculopathy, lumbar region (principal); M51.26 Other intervertebral disc displacement, lumbar region; M48.061 Spinal stenosis, lumbar region without neurogenic claudication
CPT/HCPCS: 85025; 80048; 36415; 85610; 80076; 74177; 93971; 72148; 96375; 96374; 99284; Q9967; J3360; J3010 ×2; J1100

== ENCOUNTER 2023-11-29 12:25 | Emergency (ER) | payer BC, OTHER ==
[2023-11-29] MEDS ORDERED: HYDROCODONE/APAP 10/325 TAB ONE (12:52)
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
[2023-11-29 15:08] VITALS: TEMP 97.1
[2023-11-29 15:09] VITALS: BP 135/78; O2SAT 100
== END 2023-11-29 14:46 | disposition home or self-care (01) ==
LOC: ER 12:25
DX: S09.90XA Unspecified injury of head, initial encounter (principal); S50.12XA Contusion of left forearm, initial encounter; S20.212A Contusion of left front wall of thorax, initial encounter; V47.5XXA Car driver injured in collision with fixed or stationary object in traffic accident, initial encounter; Z79.82 Long term (current) use of aspirin
CPT/HCPCS: 70450; 71250; 72125; 74176; 99283